=== PATIENT | female | born 1935 | race Caucasian/White ===

== ENCOUNTER 2019-01-01 08:09 | Outpatient (CLI) | payer BC, MEDICARE ==
[~2019-01-01 08:09] MED LIST: COR3.125T PO; DOCU-169 PO; LEVO100T46 PO; LISI-600 PO; METF-436 PO; METF500T PO; NORCO10T PO; SIMV80TA2 PO; [UNRECOGNIZED DRUG - CODE] PO
== END 2019-01-01 23:59 | disposition home or self-care (01) ==
LOC: DIABETIC 08:09
PROVIDERS: ATTEND Family Medicine
DX: E11.9 Type 2 diabetes mellitus without complications (principal); I10 Essential (primary) hypertension; Z79.82 Long term (current) use of aspirin; Z79.84 Long term (current) use of oral hypoglycemic drugs; Z90.710 Acquired absence of both cervix and uterus
CPT/HCPCS: G0108

== ENCOUNTER 2019-02-03 02:24 | Outpatient (CLI) | payer MEDICARE | END 2019-02-03 23:59 | disposition home or self-care (01) | LOC: DIABETIC 02:24 | PROVIDERS: ATTEND Family Medicine | DX: E11.9 Type 2 diabetes mellitus without complications (principal); I10 Essential (primary) hypertension; Z79.82 Long term (current) use of aspirin; Z79.84 Long term (current) use of oral hypoglycemic drugs; Z90.710 Acquired absence of both cervix and uterus | CPT/HCPCS: G0108 ==

== ENCOUNTER 2019-03-12 23:01 | Emergency (ER) | payer MEDICARE, BC ==
[~2019-03-12] VITALS: Ht 152.4 cm; Wt 69.8 kg
[2019-03-13] MEDS ORDERED: traMADol 50MG tablet PO ONE (00:45)
[2019-03-13 00:53] VITALS: BP 193/98
[2019-03-16] MEDS ORDERED: ONDA4TAB6 PO (22:33)
[2019-03-16] MEDS ORDERED: CEPH-572 PO (22:33)
[2019-03-16] MEDS ORDERED: TRAM50TA2 PO (23:09)
== END 2019-03-13 02:26 | disposition home or self-care (01) ==
LOC: ER 23:02
DX: S70.02XA Contusion of left hip, initial encounter (principal); I10 Essential (primary) hypertension; E11.9 Type 2 diabetes mellitus without complications; Z98.890 Other specified postprocedural states; Z88.5 Allergy status to narcotic agent; Z88.6 Allergy status to analgesic agent; Z79.84 Long term (current) use of oral hypoglycemic drugs; Z79.899 Other long term (current) drug therapy; W01.0XXA Fall on same level from slipping, tripping and stumbling without subsequent striking against object, initial encounter; Y93.89 Activity, other specified; Y92.89 Other specified places as the place of occurrence of the external cause; Y99.8 Other external cause status
CPT/HCPCS: 72100; 73502; 99284

== ENCOUNTER 2019-09-28 04:03 | Outpatient (CLI) | payer MEDICARE, BC ==
[~2019-09-28 04:03] MED LIST changes: +ONDA4TAB6 PO
== END 2019-09-28 23:59 | disposition home or self-care (01) ==
LOC: DIABETIC 04:03
PROVIDERS: ATTEND Family Medicine
DX: E11.9 Type 2 diabetes mellitus without complications (principal); I10 Essential (primary) hypertension; Z79.84 Long term (current) use of oral hypoglycemic drugs; Z79.82 Long term (current) use of aspirin; Z79.899 Other long term (current) drug therapy
CPT/HCPCS: G0108

== ENCOUNTER 2019-12-29 04:20 | Outpatient (CLI) | payer MEDICARE, BC | END 2019-12-29 23:59 | disposition home or self-care (01) | LOC: DIABETIC 04:20 | PROVIDERS: ATTEND Family Medicine | DX: E11.65 Type 2 diabetes mellitus with hyperglycemia (principal); Z79.84 Long term (current) use of oral hypoglycemic drugs | CPT/HCPCS: G0108 ==

== ENCOUNTER 2021-01-09 06:07 | Day surgery (SDC) | payer MEDICARE, BC ==
[~2021-01-09] VITALS: Ht 152.4 cm; Wt 77.4 kg
[2021-01-09] VITALS (9 sets, daily range): BP systolic 128–169; BP diastolic 56–92
[~2021-01-09 06:07] MED LIST changes: +ASPI-1265 PO; +ATOR40TA PO; +CALC-855 PO; -COR3.125T PO; -DOCU-169 PO; +GLIM4TAB PO; -LEVO100T46 PO; -LISI-600 PO; +LISI20TA28 PO; -NORCO10T PO; -ONDA4TAB6 PO; -SIMV80TA2 PO; -[UNRECOGNIZED DRUG - CODE] PO; +ceFAZolin 2gm in dextrose, iso 50 ML IV ONE; +famotidine 20mg tablet PO ONE; +ringers solution, lacted 1,000 ML IV SCH
[2021-01-09] MEDS ORDERED: BUPIVAcaine 0.25% w/Epi /PF 30ml vial ONE (06:40)
[2021-01-09] MEDS ORDERED: LIDOcaine 1% w/epiNEPHrine 1:200,000 30ml vial ONE (06:41)
[2021-01-09 07:26] LABS: BASOPHILS # (AUTO) 0.1 X10'3 (0-0.2); BASOPHILS % (AUTO) 0.8 % (0-1); EOSINOPHILS # (AUTO) 0.2 X10'3 (0-0.9); EOSINOPHILS % (AUTO) 2.2 % (0-6); LYMPHOCYTES # (AUTO) 1.4 X10'3 (1.1-4.8); MEAN CORPUSCULAR HEMOGLOBIN 29.5 PG (27.0-31.0); MEAN CORPUSCULAR HGB CONC 33.3 g/dL (33.0-36.5); MEAN CORPUSCULAR VOLUME 88.7 FL (78-98); MEAN PLATELET VOLUME 8.1 FL (7.4-10.4); MONOCYTES # (AUTO) 0.6 X10'3 (0-0.9); MONOCYTES % (AUTO) 7.9 % (2-12); NEUTROPHILS # (AUTO) 5.9 X10'3 (1.8-7.7); NEUTROPHILS % (AUTO) 72.1 % (42-75); PRE OP HEMATOCRIT 40.3 % (35.0-45.0); PRE OP HEMOGLOBIN 13.4 g/dL (12.0-16.0); PRE OP PLATELET COUNT 204 X10'3 (140-440); RED BLOOD COUNT 4.54 X10'6 (4.20-5.60); RED CELL DISTRIBUTION WIDTH 13.9 % (11.5-14.5)
[2021-01-09 07:42] LABS: ALBUMIN 3.6 G/DL (3.4-5.0); ALBUMIN/GLOBULIN RATIO 1.2 (1.1-1.5); ALKALINE PHOSPHATASE 71 IU/L (46-116); BLOOD UREA NITROGEN 14 MG/DL (7-18); BUN/CREATININE RATIO 19.4 (6.6-38.0); CALCIUM 9.5 MG/DL (8.5-10.1); CHLORIDE 103 MMOL/L (99-107); CREATININE 0.72 MG/DL (0.40-0.90); PRE OP ALT 21 U/L (30-65); PRE OP ANION GAP 5 (8-16); PRE OP AST 10 U/L (10-37); PRE OP BILIRUB, TOTAL 0.4 MG/DL (0.0-1.0); PRE OP POTASSIUM 4.1 MMOL/L (3.4-5.1); PRE OP SODIUM 139 MMOL/L (135-145); TOTAL CARBON DIOXIDE 30.6 MMOL/L (24-32); TOTAL PROTEIN 6.7 G/DL (6.4-8.2); eGFR 77 ML/MIN
[2021-01-09 07:45] LABS: PRE OP GLUCOSE 268 MG/DL (70-104)
[2021-01-09] MEDS ORDERED: insulin regular, human U-100 3ml vial - multi-dose IV ONE (07:50)
[2021-01-09] MEDS ORDERED: insulin Lispro (HumaLOG) vial - multi-dose SQ ONE (07:50)
[2021-01-09] MEDS ORDERED: insulin regular, human U-100 3ml vial - multi-dose SQ ONE (08:00)
[2021-01-09] MEDS ORDERED: midazolam 2 mg/2 ml injection ONE (08:19)
[2021-01-09] MEDS ORDERED: fentaNYL/PF 50MCG/1 ML 2ML syringe ONE (08:19)
[2021-01-09] MEDS ORDERED: ceFOXitin 1000 MG inj ONE ×2 (09:04)
[2021-01-09] MEDS ORDERED: LIDOcaine 2% (20mg/ml) 5ml vial ONE (09:04)
[2021-01-09] MEDS ORDERED: dexamethasone sod phosphate 4mg/ml inj. ONE (09:04)
[2021-01-09] MEDS ORDERED: ondansetron/PF 4mg/2ml inj ONE (09:04)
[2021-01-09] MEDS ORDERED: propofol inj 20 ML IV ONE (09:04)
[2021-01-09] MEDS ORDERED: rocuronium 10mg/ml inj IV ONE (09:04)
[2021-01-09] MEDS ORDERED: meperidine/PF 25mg/ml syringe IV PRN ×3 (09:10)
[2021-01-09] MEDS ORDERED: morphine 4 MG/ML inj SYRINge IV PRN (09:10)
[2021-01-09] MEDS ORDERED: proCHLORperazine 10 MG/2 ml inj IV PRN (09:10)
[2021-01-09] MEDS ORDERED: labetalol 20mg/4ml (5mg/ml) syringe IV PRN (09:10)
[2021-01-09] MEDS ORDERED: hydrALAZINE 20mg/ml inj. IV PRN (09:10)
[2021-01-09] MEDS ORDERED: morphine 2 MG/ML inj. syringe IV PRN (09:10)
[2021-01-09] MEDS ORDERED: ondansetron/PF 4mg/2ml inj IV PRN (09:10)
[2021-01-09] MEDS ORDERED: ringers solution, lacted 1,000 ML IV SCH (09:10)
[2021-01-09] MEDS ORDERED: neostigmine methylsulfate 1 MG/ML 10ml vial ONE (09:12)
[2021-01-09] MEDS ORDERED: glycopyrrolate 0.2mg/ml inj ONE (09:12)
--- NOTE | 2021-01-09 09:16 | NUR ---
Received from OR via , accompanied by Anesthesiologist DR SCOTT and report given by Anesthesiolgist. AWAKENS TO VOICE. VITALS STABLE. DRESSING DI. SP PAIN.
[2021-01-09] MEDS ORDERED: oxyCODONE/APAP 5-325mg tablet PO PRN (09:20)
--- NOTE | 2021-01-09 10:36 | NUR ---
AWAKE AND ORIENTED. VITALS STABLE. DRESSING DI. STATES PAIN IMPROVING. HOME WITH HER SPOUSE AT THIS TIME.
== END 2021-01-09 10:36 | disposition home or self-care (01) ==
LOC: PAS 06:07
PROVIDERS: ATTEND Surgery
DX: K64.8 Other hemorrhoids (principal); K64.2 Third degree hemorrhoids; Z20.822 Contact with and (suspected) exposure to COVID-19; E11.9 Type 2 diabetes mellitus without complications; I10 Essential (primary) hypertension; E03.9 Hypothyroidism, unspecified; E78.5 Hyperlipidemia, unspecified; E66.9 Obesity, unspecified; Z68.32 Body mass index [BMI] 32.0-32.9, adult; Z96.652 Presence of left artificial knee joint; Z98.890 Other specified postprocedural states; Z98.41 Cataract extraction status, right eye; Z98.42 Cataract extraction status, left eye; Z79.899 Other long term (current) drug therapy; Z88.5 Allergy status to narcotic agent; Z88.8 Allergy status to other drugs, medicaments and biological substances; Z79.82 Long term (current) use of aspirin; Z79.84 Long term (current) use of oral hypoglycemic drugs; Z90.49 Acquired absence of other specified parts of digestive tract; Z90.710 Acquired absence of both cervix and uterus; Z83.3 Family history of diabetes mellitus; Z82.61 Family history of arthritis
CPT/HCPCS: 36415; 46260; 80053; 82948; 85025; 87426; 93005; J0694; J1100; J1815; J2001; J2175; J2250; J2405; J2704; J2710; J3010; A4215; A4618; A6253; A6407; A6449; A7000; J3490; J7120

== ENCOUNTER 2022-02-22 10:16 | Emergency (ER) | payer MEDICARE, BC ==
[~2022-02-22] VITALS: Ht 152.4 cm; Wt 74.5 kg
[~2022-02-22 10:16] MED LIST changes: +AMLO5TAB4 PO; -ASPI-1265 PO; -ATOR40TA PO; +ATOR40TA72 PO; -CALC-855 PO; -GLIM4TAB PO; +GLIM4TAB7 PO; -METF-436 PO; +METF-438 PO; -METF500T PO; +SITA100T11 PO; -ceFAZolin 2gm in dextrose, iso 50 ML IV ONE; -famotidine 20mg tablet PO ONE; -ringers solution, lacted 1,000 ML IV SCH
[2022-02-22 11:21] LABS: HEMOGLOBIN 13.4 g/dl (12.0-16.0)
[2022-02-22 11:22] LABS: BASOPHILS # (AUTO) 0.1 X10'3 (0-0.2); BASOPHILS % (AUTO) 0.8 % (0-1); EOSINOPHILS # (AUTO) 0.2 X10'3 (0-0.9); EOSINOPHILS % (AUTO) 2.3 % (0-6); HEMATOCRIT 41.3 % (35.0-45.0); LYMPHOCYTES # (AUTO) 1.7 X10'3 (1.1-4.8); LYMPHOCYTES % (AUTO) 21.9 % (21-51); MEAN CORPUSCULAR HEMOGLOBIN 28.9 PG (27.0-31.0); MEAN CORPUSCULAR HGB CONC 32.5 g/dL (33.0-36.5); MEAN CORPUSCULAR VOLUME 88.8 FL (78-98); MEAN PLATELET VOLUME 8.7 FL (7.4-10.4); MONOCYTES # (AUTO) 0.7 X10'3 (0-0.9); MONOCYTES % (AUTO) 9.3 % (2-12); NEUTROPHILS # (AUTO) 5.1 X10'3 (1.8-7.7); NEUTROPHILS % (AUTO) 65.7 % (42-75); PLATELET COUNT 260 X10'3 (140-440); RED BLOOD COUNT 4.65 X10'6 (4.20-5.60); RED CELL DISTRIBUTION WIDTH 15.2 % (11.5-14.5); WHITE BLOOD COUNT 7.7 X10'3 (4.5-11.0)
[2022-02-22 11:37] LABS: ALANINE AMINOTRANSFERASE 25 U/L (12-78); ALBUMIN 3.3 G/DL (3.4-5.0); ALBUMIN/GLOBULIN RATIO 1.1 (1.1-1.5); ALKALINE PHOSPHATASE 66 IU/L (46-116); ANION GAP 7 (8-16); ASPARTATE AMINO TRANSFERASE 18 U/L (10-37); BILIRUBIN,TOTAL 0.3 MG/DL (0.1-1.0); BLOOD UREA NITROGEN 16 MG/DL (7-18); BUN/CREATININE RATIO 21.1 (6.6-38.0); CHLORIDE 106 MMOL/L (99-107); CREATININE 0.76 MG/DL (0.40-0.90); GLUCOSE 216 MG/DL (70-104); POTASSIUM 4.4 MMOL/L (3.5-5.1); SODIUM 140 MMOL/L (135-145); TOTAL CARBON DIOXIDE 27.4 MMOL/L (24-32); TOTAL PROTEIN 6.4 G/DL (6.4-8.2); eGFR 72 ML/MIN
[2022-02-22] MEDS ORDERED: APIX5TAB3 PO (13:26)
[2022-02-22 13:44] VITALS: BP 120/49
== END 2022-02-22 13:48 | disposition home or self-care (01) ==
LOC: ER 10:17
DX: I48.91 Unspecified atrial fibrillation (principal); R53.83 Other fatigue; I48.0 Paroxysmal atrial fibrillation; I10 Essential (primary) hypertension; E11.9 Type 2 diabetes mellitus without complications; Z88.8 Allergy status to other drugs, medicaments and biological substances; Z79.899 Other long term (current) drug therapy
CPT/HCPCS: 36415; 71045; 80053; 84484; 85025; 93005; 99285

== ENCOUNTER 2023-06-13 06:33 | Day surgery (SDC) | payer MEDICARE, BC ==
[2023-06-06 14:12] LABS: BASOPHILS # (AUTO) 0.1 X10'3 (0-0.2); BASOPHILS % (AUTO) 0.5 % (0-1); EOSINOPHILS # (AUTO) 1.3 X10'3 (0-0.9); LYMPHOCYTES # (AUTO) 1.4 X10'3 (1.1-4.8); LYMPHOCYTES % (AUTO) 12.2 % (21-51); MEAN CORPUSCULAR HEMOGLOBIN 29.2 PG (27.0-31.0); MEAN CORPUSCULAR HGB CONC 32.5 g/dL (33.0-36.5); MEAN CORPUSCULAR VOLUME 89.7 FL (78-98); MONOCYTES # (AUTO) 0.5 X10'3 (0-0.9); MONOCYTES % (AUTO) 4.1 % (2-12); NEUTROPHILS % (AUTO) 71.2 % (42-75); PRE OP HEMATOCRIT 42.9 % (35.0-45.0); PRE OP PLATELET COUNT 230 X10'3 (140-440); RED BLOOD COUNT 4.79 X10'6 (4.20-5.60); RED CELL DISTRIBUTION WIDTH 14.7 % (11.5-14.5)
[2023-06-06 14:33] LABS: ALBUMIN 3.7 G/DL (3.4-5.0); ALBUMIN/GLOBULIN RATIO 1.1 (1.1-1.5); ALKALINE PHOSPHATASE 87 IU/L (46-116); BLOOD UREA NITROGEN 17 MG/DL (7-18); BUN/CREATININE RATIO 26.2 (10.0-20.0); CALCIUM 9.8 MG/DL (8.5-10.1); CHLORIDE 102 MMOL/L (99-107); CREATININE 0.65 MG/DL (0.40-0.90); PRE OP ALT 17 U/L (30-65); PRE OP ANION GAP 10 (8-16); PRE OP AST 20 U/L (10-37); PRE OP BILIRUB, TOTAL 0.3 MG/DL (0.0-1.0); PRE OP GLUCOSE 168 MG/DL (70-104); PRE OP SODIUM 136 MMOL/L (135-145); TOTAL CARBON DIOXIDE 24.5 MMOL/L (24-32); TOTAL PROTEIN 7.1 G/DL (6.4-8.2); eGFR 86 ML/MIN
[2023-06-06 14:57] LABS: PRE OP POTASSIUM 4.5 MMOL/L (3.4-5.1)
[~2023-06-13] VITALS: Ht 152.4 cm; Wt 76.7 kg
[2023-06-13] VITALS (11 sets, daily range): BP systolic 122–148; BP diastolic 7–72; PULSE 57–75; RESP 14–17; TEMP 98.4; O2SAT 93–95
[~2023-06-13 06:33] MED LIST changes: +ACET-1008 PO; +AMLO2.5T4 PO; -AMLO5TAB4 PO; +ANAS1TAB49 PO; +APIX5TAB3 PO; +CALC-336 PO; +DICL20GE TOP; +DOCUMENT DATE & TIME OF BETA-BLOCKER PO ONE; +LANTUS SQ; +MIRA50TA PO; -SITA100T11 PO; +SOTA80TA46 PO; +cefazolin 2gm/D5W 100mL 100 ML IV ONE; +cystex; +famotidine 20mg tablet PO ONE; +ringers solution, lacted 1,000 ML IV SCH
[2023-06-13] MEDS ORDERED: BUPIVAcaine/PF 2.5 mg/ml (0.25%) 30ml vial ONE (06:47)
[2023-06-13] MEDS ORDERED: ringers solution, lacted 1,000 ML IV SCH (08:25)
[2023-06-13] MEDS ORDERED: ondansetron/PF 4mg/2ml inj IV PRN (08:25)
[2023-06-13] MEDS ORDERED: morphine 4 MG/ML inj SYRINge IV PRN (08:25)
[2023-06-13] MEDS ORDERED: proCHLORperazine 10 MG/2 ml inj IV PRN (08:25)
[2023-06-13] MEDS ORDERED: morphine 2 MG/ML inj. syringe IV PRN (08:25)
[2023-06-13] MEDS ORDERED: meperidine/PF 25mg/ml syringe IV PRN ×3 (08:25)
[2023-06-13] MEDS ORDERED: midazolam 1 mg/ML 2ml injection ONE (09:32)
[2023-06-13] MEDS ORDERED: fentaNYL/PF 50MCG/1 ML 2ML syringe ONE (09:32)
[2023-06-13] MEDS ORDERED: LIDOcaine 0.5% (5mg/ml) 50ml vial ONE (09:33)
--- NOTE | 2023-06-13 10:15 | NUR ---
Received from OR via [facility], accompanied by Anesthesiologist PANTERA and report given by Anesthesiolgist. PT DROWSY, OXYGENATING WELL ON ROOM AIR. VSS. DENIES NAUSEA OR PAIN AT THIS TIME, HAD KRISTY BLOCK TO LUE. BULKY DSG TO LEFT HAND, CDI.
--- NOTE | 2023-06-13 11:45 | NUR ---
PT DENIES PAIN. VSS. TOLERATING PO FLUIDS WELL. PIV DCD CATH INTACT. DC INSTRUCTIONS EXPLAINED TO PT AND HER DAUGHTER, THEY VERBALIZED UNDERSTANDING. DCD IN STABLE CONDITION WITH ALL BELONGINGS AND ICE BAG FOR WRIST. TAKEN TO CAR VIA WC.
== END 2023-06-13 11:45 | disposition home or self-care (01) ==
LOC: PAS 06:33
PROVIDERS: ATTEND Orthopaedic Surgery Hand Surgery
DX: G56.02 Carpal tunnel syndrome, left upper limb (principal); M65.332 Trigger finger, left middle finger; M19.011 Primary osteoarthritis, right shoulder; M41.9 Scoliosis, unspecified; M54.31 Sciatica, right side; M17.11 Unilateral primary osteoarthritis, right knee; I10 Essential (primary) hypertension; E11.9 Type 2 diabetes mellitus without complications; I48.91 Unspecified atrial fibrillation; C50.919 Malignant neoplasm of unspecified site of unspecified female breast; Z88.5 Allergy status to narcotic agent; Z79.899 Other long term (current) drug therapy; Z79.4 Long term (current) use of insulin; Z79.01 Long term (current) use of anticoagulants; Z98.890 Other specified postprocedural states; Z87.891 Personal history of nicotine dependence; Z96.652 Presence of left artificial knee joint; Z90.710 Acquired absence of both cervix and uterus; Z86.718 Personal history of other venous thrombosis and embolism; Z87.440 Personal history of urinary (tract) infections
CPT/HCPCS: 26055; 36415; 64721; 80053; 82948; 85025; 93005; J0690; J2250; J3010; J3490; J7030; J7120; Z7506; Z7512; A4215